=== PATIENT | female | born 1985 | race American Indian/Alaskan Native ===

== ENCOUNTER 2017-05-31 03:40 | Inpatient (IN) | payer OTHER ==
[2017-05-31] MEDS: INTROPIN DRIP 800 MG/D5W 250 ML 800 MG/250 ML BAG IV ONE ×2 (04:02→11:30)
[2017-05-31] MEDS ORDERED: LEVOPHED DRIP 4 MG/NS 250 ML 4 MG/250 ML BAG IV ONE (04:22)
[2017-05-31] MEDS ORDERED: LEVOPHED DRIP 4 MG/NS 250 ML 4 MG/250 ML BAG IV PRN (04:24)
--- NOTE | 2017-05-31 04:31 | Emergency Department Report ---
HPI - General Chief Complaint: Cardiac Arrest/CPR Time Seen by Provider: 05/31/17 03:48 - HPI HPI: Room 2 The patient is a 32-year-old female presenting with a chief complaint of cardiac arrest. Per EMS the patient had a vasovagal episode earlier in the day while sitting on the toilet. This evening the mother felt the patient lying on the floor with agonal respirations. Family states the patient then went apneic and lost a pulse so CPR was initiated by family as EMS was called. EMS arrived on scene 03:03 to find the patient in asystole. The patient was intubated by EMS and ACLS protocols continued. Upon arrival to the ED the patient was found to be in PEA and ACLS protocols were continued. There was return of spontaneous circulation for approximately 15 minutes and then the patient again went into PEA. After a round of CPR was again return of spontaneous circulation. Family was updated. Family reports the patient had been complaining of intermittent chest pain and a headache for the past week. Approximately one week ago the patient required a blood transfusion while in [facility] secondary to anemia suspected to be caused by menorrhagia and uterine fibroids. Location: Cardiovascular system Duration: [see above] Quality: Asystole Severity: Severe Modifying factors: [see above] Context: [see above] Mode of transportation: [not driving] ED Past Medical Hx - Past Medical History Hx Diabetes: Yes Additional medical history: Gastroparesis, uterine fibroids - Surgical History Past Surgical History?: No - Family History Family history: no significant - Social History Smoking Status: Current Some Day Smoker Substance Use Type: None (no known drug use per family), Alcohol ED Review of Systems ROS: Stated complaint: CARDIAC ARREST Other details as noted in HPI Comment: Unobtainable due to pts medical conditions Physical Exam - Physical Exam Physical Exam: GENERAL: The patient is well-developed well-nourished female lying on stretcher apneic and pulseless receiving chest compressions from EMS and being bagged via ET tube. [] HEENT: Normocephalic. Atraumatic. NECK: Supple. Trachea midline CHEST/LUNGS: Upon arrival her only breath sounds present on the right. After the ET tube was pulled back to 21 cm at the teeth the patient had breath sounds bilaterally. No spontaneous respirations HEART/CARDIOVASCULAR: Upon arrival there were no heart sounds. After return of spontaneous circulation patient was found to be tachycardic ABDOMEN: Abdomen is soft. There is no abdominal distention. SKIN: There is no rash. There is no edema. There is no diaphoresis. NEURO: GCS 3T MUSCULOSKELETAL: There is no evidence of acute injury. ED Medical Decision Making - Lab Data Result diagrams: 05/31/17 04:23 05/31/17 04:23 Laboratory Tests 05/31/17 05/31/17 05/31/17 04:23 04:23 04:23 WBC 15.6 H RBC 2.88 L Hgb 8.0 L Hct 26.9 L MCV 93 MCH 28 MCHC 30 RDW 14.7 Plt Count 195 PT 18.4 H INR 1.53 H APTT 40.2 H Sodium 147 H Potassium 3.8 Chloride 91.1 L Carbon Dioxide 16 L Anion Gap 44 BUN 34 H Creatinine 3.5 H Estimated GFR 18 BUN/Creatinine Ratio 9.71 Glucose 328 H Calcium 8.3 L Total Bilirubin 0.50 AST 95 H ALT 84 H Alkaline Phosphatase 69 Total Creatine Kinase 75 CK-MB (CK-2) 2.3 CK-MB (CK-2) Rel Index 3.0 Troponin T 0.074 H NT-Pro-B Natriuret Pep 76.82 Total Protein 5.3 L Albumin 2.3 L Albumin/Globulin Ratio 0.8 Triglycerides 184 H Cholesterol 120 LDL Cholesterol Direct 63 HDL Cholesterol 21 L Cholesterol/HDL Ratio 5.71 TSH Free T4 HCG, Qual Blood Type 05/31/17 05/31/17 05/31/17 04:23 04:27 05:03 WBC RBC Hgb Hct MCV MCH MCHC RDW Plt Count PT INR APTT Sodium Potassium Chloride Carbon Dioxide Anion Gap BUN Creatinine Estimated GFR BUN/Creatinine Ratio Glucose Calcium Total Bilirubin AST ALT Alkaline Phosphatase Total Creatine Kinase CK-MB (CK-2) CK-MB (CK-2) Rel Index Troponin T NT-Pro-B Natriuret Pep Total Protein Albumin Albumin/Globulin Ratio Triglycerides Cholesterol LDL Cholesterol Direct HDL Cholesterol Cholesterol/HDL Ratio TSH 1.760 Free T4 1.22 HCG, Qual Negative Blood Type A POSITIVE - EKG Data -: EKG Interpreted by Me EKG shows normal: sinus rhythm Rate: tachycardia (135 bpm) - EKG Data When compared to previous EKG there are: previous EKG unavailable Interpretation: nonspecific ST-T wave ramon (infante ST depression) - Radiology Data Radiology results: image reviewed (chest x-ray) interpreted by me: Chest x-ray-ET tube in place. No focal infiltrates, no pneumothorax - Differential Diagnosis cardiac arrest Critical Care Time: Yes Critical care time in (mins) excluding proc time.: 30 Critical care attestation.: If time is entered above; I have spent that time in minutes in the direct care of this critically ill patient, excluding procedure time. ED Disposition Clinical Impression: Cardiac arrest, Acute renal failure Disposition: -09 OP ADMIT IP TO THIS HOSP Is pt being admited?: Yes Does the pt Need Aspirin: No Condition: Serious Referrals: PRIMARY CARE, [Primary Care Provider] - 3-5 Days Time of Disposition: 05:11 (hospitalist paged) Blank Doc - Documentation Documentation: Central line note Consent was unobtainable Location: Right femoral The site was prepped and draped in a sterile fashion Site was anesthetized with lidocaine 1% approximately 3 mL Landmarks identified and needle introduced until return of dark nonpulsatile blood Blood was obtained on first attempt Guidewire introduced using Seldinger technique and triple lumen catheter placed over guidewire There was blood return from all 3 ports Catheter was secured to patient by adhesive The patient tolerated procedure well There were no complications
[2017-05-31 04:38] LABS: Hematocrit 26.9 % (30.3-42.9); Mean Corpuscular HGB Conc 30 % (30-34); Mean Corpuscular Hemoglobin 28 pg (28-32); Mean Corpuscular Volume 93 fl (79-97); Platelet Count 195 K/mm3 (140-440); Red Blood Count 2.88 M/mm3 (3.65-5.03); Red Cell Distribution Width 14.7 % (13.2-15.2); White Blood Count 15.6 K/mm3 (4.5-11.0)
[2017-05-31 04:49] LABS: INR 1.53 (0.87-1.13)
[2017-05-31 04:50] LABS: Partial Thromboplastin Time 40.2 Sec. (24.2-36.6)
[2017-05-31 04:55] LABS: Creatine Kinase MB 2.3 ng/mL (0.0-4.0)
[2017-05-31 04:58] LABS: Albumin 2.3 g/dL (3.9-5); Albumin/Globulin Ratio 0.8 %; BUN/Creatinine Ratio 9.71; Bilirubin,Total 0.5 mg/dL (0.1-1.2); Calcium 8.3 mg/dL (8.4-10.2); Chloride 91.1 mmol/L (98-107); Potassium 3.8 mmol/L (3.6-5.0); Total Protein 5.3 g/dL (6.3-8.2)
[2017-05-31] MEDS ORDERED: D50W (25GM) Syringe IV PRN (05:48)
[2017-05-31] MEDS ORDERED: D5W/0.45% NACL/KCL 20 MEQ 20 MEQ/1,000 ML BAG IV SCH (06:00)
[2017-05-31] MEDS ORDERED: NACL 0.9% 1000 ML 1,000 ML IV SCH (06:00)
[2017-05-31] MEDS ORDERED: NovoLIN R 100 UNITS in NACL 0.9% 99 ML IV SCH (06:00)
[2017-05-31 06:19] LABS: ISTAT Base Excess -15; ISTAT HCO3 13.9; ISTAT PCO2 41.1 (35-45); ISTAT PH 7.138 (7.35-7.45); ISTAT PO2 87 (80-105); ISTAT SO2 93; ISTAT TCO2 15
[2017-05-31 06:23] LABS: Basophils % (Manual) 0 % (0.0-1.8); Blastocytes % (Manual) 0 %; Diff Status Complete; Eosinophils % (Manual) 0 % (0.0-4.3); Platelet Estimate Consistent w Auto; RBC Morphology Normal
[2017-05-31 06:57] LABS: Magnesium 2.7 mg/dL (1.7-2.3); Phosphorous 11.5 mg/dL (2.5-4.5)
--- NOTE | 2017-05-31 07:21 | Admit Criteria Form ---
Admission Criteria Documentation: RESPIRATORY FAILURE GRG Clinical Indications for Admission to Inpatient Care (Place 'X' for any and all applicable criteria): Hospital admission is needed for appropriate care of the patient because of acute respiratory failure or insufficiency as indicated by 1 or more of the following (1)(2)(3)(4)(5)(6)(7)(8 ): [X ]I. Mechanical ventilation needed (acute invasive or noninvasive) [ ]II. Severe ventilation deficit as indicated by 1 or more of the following ( 9) [ ]a) Uncompensated Respiratory acidosis (pH < 7.35 and PaCO2 > 40 mmHg (5.3 kPa)) [ ]b) Airflow measurements < 25% of predicted (eg, PEFR < 100 L/min) [ ]c) FVC < 15 mL/kg of ideal body weight, or 50% decrease in vital capacity from baseline [ ]III. Noncardiac pulmonary edema not resolving with rapid emergency treatment (8) [ ]IV. Severe respiratory distress as indicated by 1 or more of the following: [ ]a) Severe tachypnea (respiratory rate greater than 30, greater than 45 for 6-month-old, greater than 60 for ) [ ]b) Severe hypoxemia (partial pressure of oxygen less than 50 mm Hg ( 6.7 kPa) on greater than 50% oxygen or partial pressure of oxygen to FIO2 ratio less than 200) [ ]c) Mental status deterioration from respiratory disease [ ]V. Airway obstruction or inadequate protection [A](10)(11) The original [employer] content created by [employer] has been revised. The portions of the content which have been revised are identified through the use of italic text or in bold, and [employer] has neither reviewed nor approved the modified material. All other unmodified content is copyright [employer]. Please see references footnoted in the original [employer] edition 2017 Admission Criteria Met: Yes
[2017-05-31 07:34] LABS: Carbon Dioxide TNR mmol/L (22-30); Chloride TNR mmol/L (98-107); Potassium TNR mmol/L (3.6-5.0); Sodium TNR mmol/L (137-145)
[2017-05-31 07:35] LABS: Anion Gap TNR mmol/L; BUN/Creatinine Ratio TNR; Blood Urea Nitrogen TNR mg/dL (7-17); Calcium TNR mg/dL (8.4-10.2); Creatine Kinase TNR units/L (30-135); Creatine Kinase MB TNR ng/mL (0.0-4.0); Glucose TNR mg/dL (65-100)
[2017-05-31] MEDS ORDERED: Vasostrict 20 UNIT in NACL 0.9% 100 ML IV SCH (07:51)
--- NOTE | 2017-05-31 07:53 | XRay Report ---
AP CHEST :05/31/17 04:30 CLINICAL: Post intubation. Cardiac arrest. COMPARISON:None. FINDINGS: The endotracheal tube is in satisfactory position. Normal heart and pulmonary vessels. The lungs are slightly underexpanded but clear. No pneumothorax. IMPRESSION: Satisfactory position of the endotracheal tube.Normal chest.
--- NOTE | 2017-05-31 08:19 | Cat Scan Report ---
Cranial CT without contrast. History: Unresponsiveness. Findings: There is generalized brain edema with loss of cortical sulci and effacement of the basal cisterns. The ventricles are compressed and barely visible. There is no evidence of intracranial hemorrhage. No extra-axial collections are seen. No mass lesions are identified. The the calvarium is intact. Impression: Severe diffuse brain edema. Anoxic injury is a primary consideration.
[2017-05-31 08:49] LABS: BUN/Creatinine Ratio 10.28; Calcium 7.7 mg/dL (8.4-10.2); Chloride 91.3 mmol/L (98-107); Potassium 3.8 mmol/L (3.6-5.0)
--- NOTE | 2017-05-31 10:25 | Consultation ---
History of Present Illness Consult date: 05/31/17 Requesting physician: LIONEL RODRÍGUEZ Reason for Consult: Brain following PEA arrest Chief complaint: NEUROLOGY CONSULTATION NOTE Asked to see this 32 yo AA F by Dr Rodríguez for evaluation of coma following a PEA arrest at home around 3:00 am today. The family started CPR apparently, EMS was summoned and found her to be asystolic. ACLS protocol was initiated. A heart beat was recovered. Here in the ED she had two additional PEA arrests and is presently on pressors, unresponsive. Chart reviewed. CT head already shows massive generalized edema. She is currently maxed out on three pressor amines. On exam: She lies motionless in bed on a ventilator in the ED on no sedatives. Her is in the room as is her sister. She follows zero commands The eyes are dysconjugate, with widely dilated fixed irregular pupils unresponsive to bright light illumination No EOM on [place] Maneuver. There is no response to deep nox stim of all four extremities DTRs uniformly absent, great toes unresponsive to plantar stim IMP: 1. Brain secondary to anoxic/hypoperfusion [employer] insult, secondary to recurrent PEA cardiac arrests. RECC: 1. Discontinue all medical care. Discussed with Dr Rodríguez. Jaja Guo MD Medications and Allergies Allergies Allergy/AdvReac Type Severity Reaction Status Date / Time No Known Allergies Allergy Verified 05/31/17 04:57 Active Meds: Active Medications Dextrose (D50w (25gm) Syringe) 0 ml IV PRN PRN PRN Reason: Hypoglycemia Norepinephrine (Levophed Drip 4 Mg/Ns 250 Ml) 4 mg in 250 mls @ 15 mls/hr IV TITR PRN; Protocol; 4 MCG/MIN PRN Reason: hypotension Last Titration: 05/31/17 09:15 Dose: 30 mcg/min, 112.5 mls/hr Dopamine HCl/Dextrose (Intropin Drip 800 Mg/D5w 250 Ml) 800 mg in 250 mls @ 16.875 mls/hr IV TITR ONE; 10 MCG/KG/MIN PRN Reason: Protocol Stop: 05/31/17 18:48 Last Titration: 05/31/17 04:04 Dose: 20 mcg/kg/min, 33.75 mls/hr Potassium Chloride/Dextrose/Sod Cl (D5w/0.45% Nacl/Kcl 20 Meq) 20 meq in 1,000 mls @ 125 mls/hr IV DIRECT ANGELICA Insulin Human Regular 100 (units/ Sodium Chloride) 100 mls @ 1 mls/hr IV TITR ANGELICA; 1 UNITS/HR PRN Reason: Protocol Last Titration: 05/31/17 09:15 Dose: 7 units/hr, 7 mls/hr Vasopressin 20 unit/ Sodium (Chloride) 101 mls @ 9.09 mls/hr IV TITR ANGELICA; 0.03 UNITS/MIN PRN Reason: Protocol Last Admin: 05/31/17 08:16 Dose: 0.03 units/min, 9.09 mls/hr Physical Examination - Vital Signs Vital Signs: Vital Signs Pulse Resp Pulse Ox 168 H 102 H 59 L 05/31/17 04:13 05/31/17 04:13 05/31/17 04:13 Results - Laboratory Findings CBC and BMP: 05/31/17 04:23 05/31/17 08:19 Abnormal Lab Findings: Abnormal Labs 05/31/17 05/31/17 05/31/17 05:59 06:30 06:39 POC ABG pH 7.138 L Chloride Carbon Dioxide BUN Creatinine Glucose POC Glucose 284 H Calcium Phosphorus 11.50 H Magnesium 2.70 H 05/31/17 05/31/17 05/31/17 08:01 08:19 09:10 POC ABG pH Chloride 91.3 L Carbon Dioxide 11 L BUN 36 H Creatinine 3.5 H Glucose 318 H POC Glucose 269 H 285 H Calcium 7.7 L Phosphorus Magnesium
--- NOTE | 2017-05-31 10:50 | History and Physical Report ---
CHIEF COMPLAINT: Unresponsiveness and cardiac arrest. HISTORY OF PRESENT ILLNESS: The patient is a 32-year-old female who went into cardiac arrest at home. The family said that the patient went to the bathroom, was sitting on the toilet and passed out and fell to the floor. The family said they attended to the patient after she fell down and she was in agonal respiration and the patient was also noted to have lost a pulse. So they started CPR and called EMS. EMS found the patient asystole reading and the patient was intubated and ACLS protocol continued. Upon arrival in the Emergency Room, the patient was found to be in PEA and ACLS protocol was continued and there was return of spontaneous circulation for about 15 minutes and then patient again went into PEA, after a round of CPR was again instituted. The patient has spontaneous circulation. The patient according to the Emergency Room report had a blood transfusion for about 1 week ago in [place], [place] secondary to anemia, which they believe was caused by menorrhagia and uterine fibroids. Family said that the patient is supposed to be on insulin for her diabetes, but they are not sure whether she is compliant. There was no prior history of chest pain or fever before the cardiac arrest. There was also no report of any chest pain or dizziness prior to the cardiac arrest. PAST MEDICAL HISTORY: Pertinent for diabetes mellitus, uterine fibroids, gastroparesis, and anemia. PAST SURGICAL HISTORY: Not well known. FAMILY HISTORY: Noncontributory. SOCIAL HISTORY: The patient smokes cigarettes, drinks alcohol, but does not use illicit drugs. MEDICATIONS: The patient's home medications are not known at this time. ALLERGIES: There are no known drug allergies. REVIEW OF SYSTEMS: CONSTITUTIONAL: There is no fever, no chills, no diaphoresis. HEENT: There is no headache or sore throat. CARDIOVASCULAR: There is no chest pain, orthopnea. RESPIRATORY: There is difficulty in breathing. No cough. GASTROINTESTINAL: There is no nausea or vomiting and there is no abdominal pain, diarrhea or constipation. NEUROLOGICAL SYSTEM: Unresponsiveness noted. MUSCULOSKELETAL SYSTEM: There is no joint pain or swelling. DERMATOLOGICAL SYSTEM: There is no skin rash or itching. GENITOURINARY: There is no dysuria, hematuria, or flank pain. Rest of system review is normal. PHYSICAL EXAMINATION: GENERAL: At the time of exam, the patient was unresponsive, intubated and mechanically ventilated post-cardiac arrest. VITAL SIGNS: Recorded shows pulse of 127, respirations was 20, blood pressure was 104/53, O2 sat of 100% by mechanical ventilation. HEENT: Showed pupils are dilated and sluggishly reactive to light. NECK: Supple with no JVD or carotid bruit. CARDIOVASCULAR SYSTEM: Show first and second heart sounds to be normal with no gallops or murmur. RESPIRATORY: Showed good air entry on both sides of the lungs. She had endotracheal tube and mechanical ventilation with no abnormal breath sounds. GASTROINTESTINAL SYSTEM: Show abdomen to be full, soft, nontender with no organomegaly or rigidity. NEUROLOGIC: Shows no focal deficits, but the patient is nonresponsive after the cardiac arrest and cardiopulmonary resuscitation. MUSCULOSKELETAL SYSTEM: Show no joint swelling or tenderness. DERMATOLOGICAL: Show no skin rash. GENITOURINARY: Showing no costovertebral angle tenderness. PERTINENT LABORATORY AND IMAGING STUDIES: The patient had CBC done that shows elevated white count of 16,600 with a low hemoglobin of 8 and low hematocrit of 26.9. The patient's coagulation studies showed a PT of 18.4 with an INR of 1.53. Repeat PT of 14.2. It is not clear whether the patient is on Coumadin. The patient's ABG showed a low pH of 7.138 with a pO2 of 87 and low O2 sat of 93% and this was on FiO2 of 100%. The patient's chemistry shows elevated sodium level of 147 with low chloride of 91, low CO2 of 16 and anion gap of 40 with elevated BUN of 34 and elevated creatinine of 3.5. The patient's blood glucose was high with a value of 328 and liver transaminases show elevated value of 95 for AST and elevated value of 84 for ALT. Troponin level was elevated with a value of 0.074 and albumin level was low with a value of 2.3. test was negative. DIAGNOSES: 1.Cardiac arrest/unresponsiveness. 2.Anemia. 3.Respiratory failure. 4.Renal insufficiency. PLAN: The patient will be admitted to ICU and will have CT of the brain without contrast done. The patient will have cardiac enzymes checked q. 6 hours x 2 more levels and we will have daily an echo done. The patient will be on regular insulin drip per DKA protocol and will have Accu-Chek every hour and basic metabolic panel every 2 hours and every 8 hours. The patient will be on IV normal saline at 250 mL an hour, which will be changed to D5 half normal with potassium when the blood glucose is below 250 mg/dL. The patient will have critical care consult with Dr. Jordan for admission to ICU and will have Nephrology consult with Dr. Gallardo because of the renal insufficiency. Also, the patient will have respiratory therapy consult to manage her ventilator. We will have blood culture drawn x 2 sets. Further management of the patient's condition will be dependent on the CAT scan report of the head. Lab results from DKA pathway and cardiac enzymes. JOB# [id number] OCN/NTS
[2017-05-31 12:14] LABS: Creatine Kinase MB 228.5 ng/mL (0.0-4.0)
[2017-05-31 12:15] LABS: BUN/Creatinine Ratio 8.8; Calcium 7.3 mg/dL (8.4-10.2); Chloride 93.5 mmol/L (98-107); Potassium 3.4 mmol/L (3.6-5.0)
--- NOTE | 2017-05-31 12:28 | Death Summary ---
Summary - Providers Date of service: 05/31/17 Consults: 05/31/17 05:45 Consult to Physician [CONS] Routine Consulting Provider: EMMA REN Reason For Exam: CARDIAC ARREST ON THE VENTILATOR Place consult to:: EMMA REN Notified:: y If yes, spoke with:: Gissell ROSARIO Time called:: 07:40 05/31/17 05:48 Consult to Dietitian/Nutrition [CONS] Routine Physician Instructions: Reason For Exam: DKA Reason for Consult: Nutrition Recommendations Reason for Consult: Diet education 05/31/17 05:52 Consult to Physician [CONS] Routine Consulting Provider: HOLLY DUKE Reason For Exam: RENAL INSUFFICIENCY Place consult to:: SRIKANTH Dyer Notified:: Y If yes, spoke with:: Jaja/Manisha COLLAZO Time called:: 07:40 05/31/17 08:55 Consult to Physician [CONS] Routine Consulting Provider: VINNIE DENISE Reason For Exam: S/P cardiac arrest, Brain edema Place consult to:: Neurology Notified:: Y Was contact made?: Yes If yes, spoke with:: DR DENISE Time called:: 09:40 Attending: LIONEL RODRÍGUEZ MD - summary Date of admission: 05/31/17 05:43 Date of : 05/31/17 Reason for admission: cardiac arrest secondary to PEA, acute hypoxic respiratory failure, DKA Significant findings: Patient was intubated on mechanical ventilation, fixated and dilated pupils, hypoxic despite on ventilation, hypotension despite on multiple pressors. By the time she presented to the emergency department the patient had one episode of cardiac arrest secondary to PEA, and after she comes to the emergency department she has another episode of cardiac arrest secondary to be and she was resuscitated to according to ACLS protocol. Patient was acidotic with elevated anion gap and blood sugar. She was started treatment with DKA protocol. CT head was done and showed brain swelling. By the time I evaluated her patient was clinically brain . I have consulted neurology for confirmation of brain and he confirmed her at 10:07 AM. I have discussed the finding with her and her mother. They refused was drawn care and I consulted risk management and families agreed withdraw of care after risk management discussed with them. Pertinent studies: CT head brain edema Disposition: Pending [facility] evaluation and discussion with the family. - Final diagnosis (1) Brain Note: Final diagnosis: (2) Hypoxia Note: Final diagnosis: (3) Shock Note: Final diagnosis: (4) DKA (diabetic ketoacidoses) Qualifiers: Diabetes mellitus type: D Diabetes mellitus complication detail: D Note: Final diagnosis: (5) Metabolic acidosis Note: Final diagnosis: (6) Acute renal failure Qualifiers: Acute renal failure type: A Note: Final diagnosis: (7) Cardiac arrest Note: Final diagnosis: - Complications Complications: Cardiac arrest, Brain
--- NOTE | 2017-05-31 12:35 | Death Note ---
Note Date of : 05/31/17 Time of : 10:07 Time Pronounced: 10:07 (Brain confirmed by me and neurologist.) - Preliminary Cause of (problem) (1) Brain Preliminary cause of Patient was brain by the time I saw her and I called the neurologist and confirm. (2) Hypoxia Preliminary cause of (3) Shock Preliminary cause of Patient was on multiple pressors and despite that blood pressures dropping down. (4) DKA (diabetic ketoacidoses) Qualifiers: Diabetes mellitus type: D Diabetes mellitus complication detail: D Preliminary cause of (5) Metabolic acidosis Preliminary cause of (6) Acute renal failure Qualifiers: Acute renal failure type: A Preliminary cause of (7) Cardiac arrest Preliminary cause of Patient has 2 episodes of cardiac arrest secondary to PEA and one happened at the emergency department.
[2017-05-31] MEDS ORDERED: ATROPINE 0.1% (CARDIAC) ONE (14:43)
[2017-05-31] MEDS ORDERED: INTROPIN DRIP 800 MG/D5W 250 ML IV ONE (14:43)
[2017-05-31] MEDS ORDERED: SODIUM BICARBONATE IV ONE (14:43)
[2017-05-31] MEDS ORDERED: ADRENALIN ONE (14:43)
[2017-05-31 15:26] VITALS: BP 85/55
--- NOTE | 2017-05-31 16:51 | Consultation ---
History of Present Illness - Reason for Consult Consult date: 05/31/17 acute renal failure - History of Present Illness History obtained from patient's mother and medical records. Mrs. Gutiérrez is a 32yo female who presented to the ED via EMS. Per EMS the patient had a vasovagal episode earlier in the day while sitting on the toilet. The mother found the patient lying on the floor with agonal respirations. Family stated the patient then went apneic and lost a pulse so CPR was initiated by family as EMS was called. EMS arrived on scene 03:03 to find the patient in asystole. The patient was intubated by EMS and ACLS protocols continued. Upon arrival to the ED the patient was found to be in PEA and ACLS protocols were continued. There was return of spontaneous circulation for approximately 15 minutes and then the patient again went into PEA. After a round of CPR was again return of spontaneous circulation. Per mother, patient had recent complaints of abdominal pain, nausea and vomiting appx 1 week ago. Those symptoms resolved with OTC medications. Patient recently received a blood transfusion for anemia attributed to menorrhagia and uterine fibroids. Past History Past Medical History: other (uterine fibroids) Past Surgical History: No surgical history Social history: no significant social history Family history: no significant family history Medications and Allergies Allergies Allergy/AdvReac Type Severity Reaction Status Date / Time No Known Allergies Allergy Verified 05/31/17 04:57 Active Meds: Active Medications Dextrose (D50w (25gm) Syringe) 0 ml IV PRN PRN PRN Reason: Hypoglycemia Norepinephrine (Levophed Drip 4 Mg/Ns 250 Ml) 4 mg in 250 mls @ 15 mls/hr IV TITR PRN; Protocol; 4 MCG/MIN PRN Reason: hypotension Last Titration: 05/31/17 09:15 Dose: 30 mcg/min, 112.5 mls/hr Dopamine HCl/Dextrose (Intropin Drip 800 Mg/D5w 250 Ml) 800 mg in 250 mls @ 16.875 mls/hr IV TITR ONE; 10 MCG/KG/MIN PRN Reason: Protocol Stop: 05/31/17 18:48 Last Admin: 05/31/17 11:30 Dose: 20 mcg/kg/min, 33.75 mls/hr Potassium Chloride/Dextrose/Sod Cl (D5w/0.45% Nacl/Kcl 20 Meq) 20 meq in 1,000 mls @ 125 mls/hr IV DIRECT ANGELICA Insulin Human Regular 100 (units/ Sodium Chloride) 100 mls @ 1 mls/hr IV TITR ANGELICA; 1 UNITS/HR PRN Reason: Protocol Last Titration: 05/31/17 10:22 Dose: 7 units/hr, 7 mls/hr Vasopressin 20 unit/ Sodium (Chloride) 101 mls @ 9.09 mls/hr IV TITR ANGELICA; 0.03 UNITS/MIN PRN Reason: Protocol Last Admin: 05/31/17 08:16 Dose: 0.03 units/min, 9.09 mls/hr Review of Systems ROS unobtainable: due to endotracheal tube Exam - Vital Signs Vital signs: Vital Signs Pulse Resp Pulse Ox 168 H 102 H 59 L 05/31/17 04:13 05/31/17 04:13 05/31/17 04:13 - General Appearance General appearance: intubated EENT: ATNC, other (ETT in place) Respiratory: Other (coarse breath sounds) Heart: tachycardia, S1S2 Gastrointestinal: Present: hypoactive bowel sounds, other (soft, nondistended) Integumentary: no rash Musculoskeletal: Present: other (no edema) Results - Lab Results 05/31/17 04:23 05/31/17 11:35 Most recent lab results Calcium 7.3 mg/dL (8.4-10.2) L 05/31/17 11:35 Phosphorus 11.50 mg/dL (2.5-4.5) H 05/31/17 06:30 Magnesium 2.70 mg/dL (1.7-2.3) H 05/31/17 06:30 Assessment and Plan Impression: * Acute kidney injury secondary to ischemic ATN s/p cardiac arrest * Cardiac arrest * Acute respiratory faliure * Sepsis * Metabolic acidosis Plan: * Patient's and mother at bedside. At present, renal function is guarded. Electrolytes are stable but FiO2 requirement is 100%. However, patient is currently 3 pressors - Vaso, Levo and Dopamine. Due to hemodynamic instabiliy, patient is not stable for dialysis. * Continue pressors for MAP>65 * Vent management per critical care medicine
== END 2017-05-31 15:17 | DRG 871 ==
LOC: ED 03:40 → CC1 05:43
PROVIDERS: ADMIT Internal Medicine; ATTEND Internal Medicine
PROC: 5A1935Z Respiratory Ventilation, Less than 24 Consecutive Hours (ICD-10-PCS; principal; 2017-05-31)
PROC: 0BH17EZ Insertion of Endotracheal Airway into Trachea, Via Natural or Artificial Opening (ICD-10-PCS; 2017-05-31)
PROC: 4A033R1 Measurement of Arterial Saturation, Peripheral, Percutaneous Approach (ICD-10-PCS; 2017-05-31)
PROC: 02HV33Z Insertion of Infusion Device into Superior Vena Cava, Percutaneous Approach (ICD-10-PCS; 2017-05-31)
DX: A41.9 Sepsis, unspecified organism (principal); E13.10 Other specified diabetes mellitus with ketoacidosis without coma; N17.0 Acute kidney failure with tubular necrosis; J96.01 Acute respiratory failure with hypoxia; R57.9 Shock, unspecified; E87.2 Acidosis; I46.9 Cardiac arrest, cause unspecified; F17.210 Nicotine dependence, cigarettes, uncomplicated; D64.9 Anemia, unspecified; I99.8 Other disorder of circulatory system; Z72.89 Other problems related to lifestyle
CPT/HCPCS: 36415; 51702; 70450; 71010; 80048; 80053; 80061; 82550; 82553; 82803; 82805; 82962; 83735; 83880; 84100; 84439; 84443; 84484; 84703; 85007; 85025; 85610; 85730; 86850; 86900; 86901; 87070; 87205; 92950; 93005; 93010; 94002; 96374; 96375; J0171; J0461; J1265; J1815